=== PATIENT | male | born 1985 | race Caucasian/White ===

== ENCOUNTER → 2019-11-14 12:21 | Outpatient (CLI) | payer MEDICARE, SELFPAY ==
--- NOTE | ~2019-11-14 | MR_ITS ---
EXAMINATION: MR lumbar spine wo con DATE: 11/14/2019 12:54 INDICATION: Lumbar radiculopathy. Occasional right sided predominant bilateral leg pain. TECHNIQUE: Magnetic resonance imaging (MRI) of the lumbar spine was performed without intravenous con trast. Sequences included sagittal T2-weighted FSE, sagittal T2-weighted FS FSE, sagittal T1-weighted FSE, and axial T2-weighted FSE. COMPARISON: None FINDINGS: Approximately 30 degrees lumbar dextroscoliosis. Sagittal alignment appears normal. There is prominen t metallic magnetic field artifact associated with likely bilateral vertical rylan and pedicle screw fi xation for posterior spinal fusion at the thoracolumbar junction and lower thoracic spine. There appe ar to be bilateral pedicle screws at L1 and a left-sided pedicle screw at T12. The vertical rods appe ar to extend cephalad to axial images likely at least to the level of T10. This limits evaluation in the immediate vicinity of the instrumentation. Vertebral body heights are normal. Normal marrow signal. Moderate to severe left-sided predominant disc height loss at L3-L4. Mild to moderate left-sided disc height loss at L2-L3. Mild right-sided di sc height loss at L4-L5. The distal spinal cord and conus are secured by the magnetic field artifact. Paravertebral soft tissues are unremarkable. The following disc levels are specifically discussed: T12-L1: The disc does not appear to extend beyond the endplate margin. The region of the facet joints are obscured and may be fused given the posterior spinal fusion instrumentation. Assessment for sten osis in the central canal or neural foramina at this level is nondiagnostic. There is a significant a mount of CSF signal seen in the visualized anterior portion of the central canal suggesting no signif icant stenosis. There is sufficient fat signal at the bilateral neural foramina to suggest no greater than mild stenosis. L1-L2: The disc does not extend beyond the endplate margin. There is likely mild bilateral facet join t osteoarthritis. There is no right and potentially mild left neural foraminal stenosis. There is no central canal stenosis. L2-L3: Small right paracentral to foraminal zone disc protrusion. There is hypertrophy of the ligamen ale flavum. There is altered left and moderate to severe right facet joint osteoarthritis. There is mild bilateral neural foraminal stenosis. There is mild central canal stenosis. L3-L4: Very small right paracentral disc protrusion. There is moderate bilateral facet joint osteoart hritis. There is mild right and moderate left neural foraminal stenosis. There is mild central canal stenosis. L4-L5: The disc does not extend beyond the endplate margin. There is mild left and moderate right fac et joint osteoarthritis. There is mild bilateral neural foraminal stenosis. There is no central canal stenosis. L5-S1: Disc is mildly bulging with superimposed central annular fissure and small disc extrusion with disc material extending couple millimeter caudal to the level of the superior endplate of S1. There is mild bilateral facet joint osteoarthritis. There is mild left and moderate right neural foraminal stenosis. There is no central canal stenosis. IMPRESSION: 1. 30 degrees lumbar dextroscoliosis with moderate spondylosis. 2. Metallic magnetic field artifact associated with likely instrumented posterior spinal fusion at T1 2-L1 likely extending into the more cephalad lower thoracic spine. This limits evaluation at the T12- L1 and to a lesser degree L1-L2. Reviewed, dictated and finalized at location A. IMPRESSION: 1. 30 degrees lumbar dextroscoliosis with moderate spondylosis. 2. Metallic magnetic field artifact associated with likely instrumented posteri or spin
== END ==
PROVIDERS: PCP Family Medicine; Visit Provider Nurse Practitioner Adult Health
DX: M47.26 Other spondylosis with radiculopathy, lumbar region (principal); Z98.1 Arthrodesis status
CPT/HCPCS: 72148